=== PATIENT | male | born 1990 | race Hispanic/Latino ===

== ENCOUNTER 2018-05-20 08:45 | Day surgery (SDC) | payer MEDICAID ==
[2018-05-18 12:00] VITALS: BP 103/46
[2018-05-18 12:04] LABS: BASOPHILS % (AUTO) 0.3 % (0.0-5.0); EOSINOPHILS % (AUTO) 0.2 % (0.0-8.0); HEMATOCRIT 45.3 % (42-54); LYMPHOCYTES % (AUTO) 8.9 % (21.0-51.0); MEAN CORPUSCULAR HGB CONC 34.3 g/dL (32.0-36.0); MEAN CORPUSCULAR VOLUME 84.4 fL (79-99); MONOCYTES % (AUTO) 10.3 % (3.0-13.0); NEUTROPHILS % (AUTO) 80.3 % (40.0-77.0); PLATELET COUNT (AUTO) 124 K/uL (130-400); RED BLOOD CELL COUNT(AUTO) 5.37 MIL/uL (4.50-6.20); RED CELL DISTRIBUTION WIDTH 14.3 % (11.0-15.5); WHITE BLOOD COUNT (AUTO) 5.3 K/uL (4.8-10.8)
[2018-05-18 12:11] LABS: CREATININE 1.1 mg/dL (0.5-1.5)
[2018-05-18 12:15] LABS: INR 1.02 (0.85-1.15); PARTIAL THROMBOPLASTIN TIME 31.2 SEC (26.3-35.5); PROTHROMBIN TIME 10.7 SEC (9.6-11.6)
[~2018-05-20] VITALS: Ht 154.9 cm; Wt 49.3 kg
[~2018-05-20 08:45] MED LIST: AMIO200T5 PO; ASPI-555 PO; BUME1TAB12 PO; CEFAZOLIN SODIUM 1 GM VIAL IVP SCH; CIPR-245 PO; DICY20TA11 PO; METO-409 PO; PANT20TA12 PO; POTA-79 PO; SERT50TA12 PO; VERA-7 PO
[2018-05-20 08:50] VITALS: BP 97/45
[2018-05-20] MEDS ORDERED: SODIUM CHLORIDE 0.9% 1000ML 1,000 ML IV ONE (11:10)
[2018-05-20] MEDS ORDERED: MEPERIDINE-PF 25 MG/ML SYG ONE ×4 (14:48→16:06)
[2018-05-20] MEDS ORDERED: BUPIVACAINE/PF 0.25% 50ML VIAL IJ ONE (14:48)
[2018-05-20] MEDS ORDERED: MIDAZOLAM HCL 1 MG/ML 2ML VIAL ONE ×4 (14:48→16:06)
[2018-05-20] MEDS ORDERED: LIDOCAINE HCL 1% MDV 50ML VIAL ONE (14:48)
[2018-05-20] MEDS ORDERED: CEFAZOLIN SODIUM 1 GM VIAL ONE (14:51)
[2018-05-20] MEDS ORDERED: THROMBIN-JMI 5000 UNIT/VIAL TP ONE (16:33)
[2018-05-20] MEDS ORDERED: ONDANSETRON HCL 4 MG/2 ML VIAL IV PRN (17:30)
[2018-05-20] MEDS ORDERED: ACETAMINOPHEN 325 MG TAB PO PRN (17:30)
[2018-05-20] MEDS ORDERED: ACETAMINOPHEN-CODEINE 300/30MG TAB PO PRN ×2 (17:30)
[2018-05-20] MEDS ORDERED: TYL3 PO (17:37)
[2018-05-20 18:30] VITALS: BP 99/57
== END 2018-05-20 21:21 ==
LOC: DAH 08:45
PROVIDERS: ATTEND Internal Medicine Cardiovascular Disease
DX: T82.111A Breakdown (mechanical) of cardiac pulse generator (battery), initial encounter (principal); I42.2 Other hypertrophic cardiomyopathy; I48.92 Unspecified atrial flutter; Z79.899 Other long term (current) drug therapy
CPT/HCPCS: 33263; 36415; 80048; 85025; 85610; 85730; 93005; A4606; C1721; J0690; J2175 ×4; J2250 ×4; J2405; J3490 ×3; J7030; 99156; 99157

== ENCOUNTER 2021-04-29 08:11 | Day surgery (SDC) | payer MEDICAID ==
[2021-04-25 11:48] LABS: BASOPHILS % (AUTO) 0.4 % (0.0-5.0); EOSINOPHILS % (AUTO) 0.6 % (0.0-8.0); HEMATOCRIT 40.8 % (42-54); LYMPHOCYTES % (AUTO) 19.8 % (21.0-51.0); MEAN CORPUSCULAR HEMOGLOBIN 29.5 pg (27.0-33.0); MEAN CORPUSCULAR HGB CONC 33.6 g/dL (32.0-36.0); MEAN CORPUSCULAR VOLUME 87.9 fL (79-99); MONOCYTES % (AUTO) 9.5 % (3.0-13.0); NEUTROPHILS % (AUTO) 69.4 % (40.0-77.0); PLATELET COUNT (AUTO) 190 K/uL (130-400); RED BLOOD CELL COUNT(AUTO) 4.64 MIL/uL (4.50-6.20); RED CELL DISTRIBUTION WIDTH 12.9 % (11.0-15.5); WHITE BLOOD COUNT (AUTO) 10.5 K/uL (4.8-10.8)
[2021-04-25 11:57] LABS: CREATININE 1.3 mg/dL (0.5-1.5); POTASSIUM 3.8 mmol/L (3.5-5.1)
[2021-04-25 12:02] LABS: INR 1.85 (0.85-1.15); PROTHROMBIN TIME 19.1 SEC (9.6-11.6)
[2021-04-25 12:03] LABS: PARTIAL THROMBOPLASTIN TIME 56.4 SEC (26.3-35.5)
[2021-04-26 10:14] VITALS: BP 101/44
[~2021-04-29] VITALS: Ht 160 cm; Wt 47.7 kg
[2021-04-29] VITALS (12 sets, daily range): BP systolic 85–115; BP diastolic 37–50
[~2021-04-29 08:11] MED LIST changes: -AMIO200T5 PO; +AMIO200T6 PO; -ASPI-555 PO; -BUME1TAB12 PO; +BUME1TAB6 PO; +CALC-129 PO; -CEFAZOLIN SODIUM 1 GM VIAL IVP SCH; -CIPR-245 PO; -DICY20TA11 PO; -PANT20TA12 PO; -POTA-79 PO; +RIVA20TA PO; +SERT-439 PO; -SERT50TA12 PO; -VERA-7 PO; +VITAMIN D3 PO; +[UNRECOGNIZED DRUG - CODE] PO
[2021-04-29] MEDS ORDERED: PROPOFOL 10 MG/ML 20ML VIAL IV ONE (10:07)
[2021-04-29] MEDS ORDERED: 0.9%NACL 1000ML 1,000 ML IV ONE (12:35)
== END 2021-04-29 10:55 | disposition home or self-care (01) ==
LOC: DAH 08:11
PROVIDERS: ATTEND Internal Medicine Cardiovascular Disease
DX: I48.19 Other persistent atrial fibrillation (principal); Z20.822 Contact with and (suspected) exposure to COVID-19; I42.2 Other hypertrophic cardiomyopathy; Z79.01 Long term (current) use of anticoagulants; Z79.82 Long term (current) use of aspirin; Z79.899 Other long term (current) drug therapy; Z98.890 Other specified postprocedural states
CPT/HCPCS: 36415; 80048; 85025; 85610; 85730; 87635; 92960; 93005 ×2; A4215; A4216; A4221; A4222; A4223 ×3; A4606; A4663; C9803; J3490; J7030; J2704